=== PATIENT | male | born 1985 | race African-American/Black ===

== ENCOUNTER 2016-04-27 10:31 | Emergency (ER) | payer OTHER ==
--- NOTE | ~2016-04-27 | CR172 ---
[facility] A Service of [facility] & [facility] RADIOLOGY TEXT RESULTS PATIENT: YONNY REESE LOCATION: [facility] : 89 UNIT #: [id number] AGE: [address]: Bisi Marquez SEX: M ORDER DR: [id number] [facility] [address] [place], [place] [address] [id number] E MR#: [id number] Acc #: [id number] NAME: YONNY REESE : 1985 SEX: M STUDY DATE/TIME: 04/27/2016 10:03 UNIT: [facility] ROOM: STUDY DESCRIPTION: CR Knee 3 Views Lt Attending Physician: Bisi Marquez P.A.-C. Ordering Physician: Bisi Marquez P.A.-C. [facility] MEDICAL IMAGING REPORT This report is preliminary unless electronic signature is present EXAM Left knee, 3 views, 04/27/2016, 1003 hours. CLINICAL HISTORY Left knee pain. Patient twisted left knee while dancing last night. COMPARISON None. FINDINGS AP, lateral, and sunrise views demonstrate trace suprapatellar synovial thickening or fluid. There is no lipohemarthrosis or fracture. No joint space loss, spurring, or loose body. IMPRESSION There is trace fluid or synovial thickening in the suprapatellar bursa without lipohemarthrosis, fracture, or joint space loss. No loose body seen. Dictated by... Aziza Metcalf M.D. THIS IS AN ELECTRONICALLY VERIFIED REPORT Aziza Metcalf M.D. at 04/27/2016 2:30 PM LENORA/radha TD: 04/27/2016 14:14 JOB #: [id number] MEDICAL IMAGING REPORT COPY
[~2016-04-27 10:31] MED LIST: BACTRIM DS TABL1 TAB PO; CLINDAMYCIN HC300 MG PO; FLAGYL PO; HYDROCODONE-APA1 T41 PO; KEFLEX PO; NO MEDICATIONS; PHENERGAN PO; VICODIN 5/500 T1 TAB PO
== END 2016-04-27 10:51 | disposition home or self-care (01) ==
LOC: CFTX 10:31
DX: S89.92XA Unspecified injury of left lower leg, initial encounter (principal); R03.0 Elevated blood-pressure reading, without diagnosis of hypertension; Z79.899 Other long term (current) drug therapy; Y93.41 Activity, dancing
CPT/HCPCS: 29530; 73562; 99283

== ENCOUNTER 2016-07-05 19:15 | Emergency (ER) | payer OTHER ==
--- NOTE | ~2016-07-05 | CT71 ---
[facility] A Service of [facility] & [facility] RADIOLOGY TEXT RESULTS PATIENT: YONNY REESE LOCATION: [facility] : 89 UNIT #: [id number] AGE: [address]: Jose Hager SEX: M ORDER DR: [id number] [facility] [address] [place], [place] [address] [id number] E MR#: [id number] Acc #: [id number] NAME: YONNY REESE : 1985 SEX: M STUDY DATE/TIME: 07/05/2016 20:27 UNIT: [facility] ROOM: STUDY DESCRIPTION: CT Head Wo Contrast Attending Physician: Jose Hager Ordering Physician: Jose Hager Primary Care Physician: [facility] MEDICAL IMAGING REPORT This report is preliminary unless electronic signature is present EXAM CT head, 07/05/2016 HISTORY Trauma. Fell and hit head at 07/04/2016 p.m., hit right side of head, unknown loss of consciousness. EtOH. Pain right side head. This CT exam was performed with one or more of the following radiation dose reduction techniques: automatic exposure control, adjustment of mA and/or kV according to patient size, and iterative reconstruction. FINDINGS CT head performed skull base through vertex without intravenous contrast. Comparison 11/02/2015. Brainstem unremarkable. Cerebellum and cerebral hemispheres show normal rcum matter-white matter differentiation. No intracranial hemorrhage. No evidence of acute cortical ischemia. Midline structures nondisplaced. Basal ganglia intact. Ventricles, cisterns, sulci normal in size and contour. No intra or extraaxial mass effect or abnormal intracranial fluid collection. The intraorbital soft tissues are unremarkable. Visualized paranasal sinuses and mastoid air cells are clear. No fracture. Soft tissue swelling right temporoparietal and parietal scalp with some mild associated skin thickening but no soft tissue defect, subcutaneous air or radiodense foreign body. IMPRESSION 1. Brain appears normal. If patient has ongoing neurologic symptoms, consider followup imaging. 2. No fracture. 3. Soft tissue swelling right temporoparietal and parietal scalp without soft tissue defect, subcutaneous air or radiodense foreign body. Please correlate with clinical exam. STS. [facility] A Service of [facility] & [facility] RADIOLOGY TEXT RESULTS PATIENT: YONNY REESE LOCATION: [facility] : [birth year] UNIT #: [id number] AGE: [address]: Jose Hager SEX: M ORDER DR: Dictated by... Walt Lou M.D. THIS IS AN ELECTRONICALLY VERIFIED REPORT Walt Lou M.D. at 07/06/2016 2:21 PM MALINDA/taylor TD: 07/06/2016 00:14 JOB #: [id number] MEDICAL IMAGING REPORT Page 1 of 1 COPY
== END 2016-07-05 22:10 | disposition home or self-care (01) ==
LOC: CED 19:15 → CFTX 19:15
DX: S06.0X0A Concussion without loss of consciousness, initial encounter (principal); S90.511A Abrasion, right ankle, initial encounter; S50.811A Abrasion of right forearm, initial encounter; F17.200 Nicotine dependence, unspecified, uncomplicated; W10.9XXA Fall (on) (from) unspecified stairs and steps, initial encounter; Y92.009 Unspecified place in unspecified non-institutional (private) residence as the place of occurrence of the external cause
CPT/HCPCS: 70450; 90471; 90715; 99284

== ENCOUNTER 2016-08-16 18:43 | Emergency (ER) | payer OTHER ==
--- NOTE | ~2016-08-16 | CR127 ---
[facility] A Service of [facility] & [facility] RADIOLOGY TEXT RESULTS PATIENT: YONNY REESE LOCATION: [place] : 89 UNIT #: [id number] AGE: [address]: RAHEEM BYRNE APRN SEX: M ORDER DR: [id number] [facility] [address] [place], [place] [address] [id number] E MR#: [id number] Acc #: [id number] NAME: YONNY REESE : 1985 SEX: M STUDY DATE/TIME: 08/16/2016 20:03 UNIT: [facility] ROOM: STUDY DESCRIPTION: CR Foot Complete Min 3 View Rt Attending Physician: Raheem Byrne Aprn Ordering Physician: Raheem Byrne Aprn MEDICAL IMAGING REPORT This report is preliminary unless electronic signature is present EXAM Right foot 3 views 08/16/2016 HISTORY Right foot pain and swelling after twisting foot yesterday. FINDINGS The tarsal, metatarsal, and phalangeal elements are all anatomically normal in position and alignment. There are no articular defects. No fractures or radiopaque foreign bodies in the soft tissues are apparent. IMPRESSION Normal foot. Dictated by... Carlos West M.D. THIS IS AN ELECTRONICALLY VERIFIED REPORT Carlos West M.D. at 08/18/2016 6:19 AM KRT/pcl TD: 08/17/2016 15:43 JOB #: [id number] MEDICAL IMAGING REPORT Page 1 of 1 COPY
--- NOTE | ~2016-08-16 | CR21 ---
[facility] A Service of [facility] & [facility] RADIOLOGY TEXT RESULTS PATIENT: YONNY REESE LOCATION: [place] : 89 UNIT #: [id number] AGE: [address]: RAHEEM BYRNE APRN SEX: M ORDER DR: [id number] [facility] [address] [place], [place] [address] [id number] E MR#: [id number] Acc #: [id number] NAME: YONNY REESE : 1985 SEX: M STUDY DATE/TIME: 08/16/2016 20:01 UNIT: [place] ROOM: STUDY DESCRIPTION: CR Ankle Min 3 Views Rt Attending Physician: Raheem Byrne Aprn Ordering Physician: Raheem Byrne Aprn Primary Care Physician: [facility], MEDICAL IMAGING REPORT This report is preliminary unless electronic signature is present EXAM Right ankle, 3 views; 08/16/2016. HISTORY Right ankle pain and swelling after twisting foot and ankle yesterday. FINDINGS AP, lateral, and oblique projections of the ankle show satisfactory integrity of the joint mortise with a smooth articular surface. There is no identifiable fracture, dislocation, or radiopaque foreign body. IMPRESSION Normal right ankle. Dictated by... Carlos West M.D. THIS IS AN ELECTRONICALLY VERIFIED REPORT Carlos West M.D. at 08/18/2016 6:19 AM MICHELLE/adam TD: 08/17/2016 15:52 JOB #: [id number] MEDICAL IMAGING REPORT Page 1 of 1 COPY
== END 2016-08-16 21:54 | disposition home or self-care (01) ==
LOC: CED 18:43 → CFTX 18:43
DX: S93.401A Sprain of unspecified ligament of right ankle, initial encounter (principal); S93.601A Unspecified sprain of right foot, initial encounter; S80.211A Abrasion, right knee, initial encounter; F17.210 Nicotine dependence, cigarettes, uncomplicated; V00.131A Fall from skateboard, initial encounter; Y93.21 Activity, ice skating; Y92.410 Unspecified street and highway as the place of occurrence of the external cause
CPT/HCPCS: 29540; 73610; 73630; 99283

== ENCOUNTER 2016-09-30 00:06 | Emergency (ER) | payer OTHER ==
[~2016-09-30] VITALS: Ht 175.3 cm; Wt 77.1 kg
== END 2016-09-30 01:38 | disposition home or self-care (01) ==
LOC: CED 00:06
DX: R10.30 Lower abdominal pain, unspecified (principal); R19.7 Diarrhea, unspecified; F17.210 Nicotine dependence, cigarettes, uncomplicated
CPT/HCPCS: 99284